=== PATIENT | female | born 1960 | race Caucasian/White ===

== ENCOUNTER 2024-03-13 10:30 | Outpatient (CLI) | payer MEDICARE, SELFPAY ==
--- NOTE | 2024-03-13 10:35 | MM_ITS ---
PROCEDURE INFORMATION: Exam: MG Bilateral Screening 3D Mammography Exam date and time: 03/13/2024 10:27 AM Age: 64 years old Clinical indication: Screening examination. Her sister had breast cancer. TECHNIQUE: Imaging protocol: Bilateral Screening tomosynthesis and 2D mammography including computer-aided detection (CAD) when performed. COMPARISON: 1. MG MM MAMMO DIGITAL CESAR SCREEN BILAT 03/02/2023 12:16 PM 2. MG DMSB DIGITAL MAMM-SCREEN BILATERAL 05/11/2012 9:30 AM 3. MG DMSB DIGITAL MAMM-SCREEN BILATERAL 05/07/2011 8:11 AM 4. MG DMDXUAVL DIG MAMM-DX UNI ADD VIEWS-LT 05/06/2010 1:28 PM FINDINGS: MAMMOGRAPHY: Breast composition: There are scattered areas of fibroglandular density. Mass: None. Architectural distortion: None. Calcifications: No suspicious calcifications. Asymmetric density: None. Skin thickening: None. Axillary adenopathy: None. IMPRESSION: No mammographic evidence of malignancy. Annual screening is recommended unless otherwise clinically indicated. ASSESSMENT: BI-RADS Category 1: Negative.
== END 2024-03-13 23:59 | disposition home or self-care (01) ==
PROVIDERS: PCP Family Medicine; Visit Provider Family Medicine
DX: Z12.31 Encounter for screening mammogram for malignant neoplasm of breast (principal)
CPT/HCPCS: 77063; 77067

== ENCOUNTER 2025-03-14 09:53 | Outpatient (CLI) | payer MEDICARE, SELFPAY ==
--- NOTE | 2025-03-14 09:55 | MM_ITS ---
PROCEDURE INFORMATION: Exam: MG Bilateral Screening 3D Mammography Exam date and time: 03/14/2025 10:00 AM Age: 65 years old Clinical indication: Screening examination TECHNIQUE: Imaging protocol: Bilateral Screening tomosynthesis and 2D mammography including computer-aided detection (CAD) when performed. COMPARISON: 1. MG MM DIG SCREENING MAMM BI W/CAD 03/13/2024 10:27 AM 2. MG MM MAMMO DIGITAL CESAR SCREEN BILAT 03/02/2023 12:16 PM FINDINGS: MAMMOGRAPHY: Breast composition: There are scattered areas of fibroglandular density. Mass: None. Architectural distortion: None. Calcifications: No suspicious calcifications. Asymmetric density: None. Skin thickening: None. Axillary adenopathy: None. IMPRESSION: No mammographic evidence of malignancy. Annual screening is recommended unless otherwise clinically indicated. ASSESSMENT: BI-RADS Category 1: Negative.
--- OUTSIDE RECORDS SUMMARY | 2025-03-14 10:04 | XMS_ITS | Clinical Summary ---
Author Organization [facility] are Address [address] [place] [address] Phone Care Team Providers Care Garment Finisher Name Role Phone Unavailable Unavailable Conditions or Problems No information available. Medications No information available. Medications Administered No information available. Allergies, Adverse Reactions, Alerts No information available. Results No information available. Plan of Care No information available. Procedures No information available. Vital Signs No information available. Immunizations No information available. Advance Directives No information available.
--- OUTSIDE RECORDS SUMMARY | 2025-03-14 10:04 | XMS_ITS | Encounter Summary ---
Author Organization Healthcare Address [address] [place] [address] Care Team Providers Care Court Bailiff Name Role Phone Emelia Tellez MD Primary Care Provider [phone] Encounter Details Date Type Department Care Team (Late st Contact Info) Description 12/29/2018 Abstract DSB [facility] [address] [place] [address] Dental, Provider, [place] [address] Social History Tobacco Use Types Packs/Day Years Used Date Smoking Tobacco: Never Assessed Comments Unknown Sex and Gender Information Value Date Recorded Sex Assigned at Not on file Legal Sex Female 8:54 PM EDT Gender Identity Not on file Sexual Orientation Not on file documented as of this encounter Plan of Treatment Not on file documented as of this encounter Visit Diagnoses Not on filedocumented in this encounter Care Teams Court Bailiff Relationship Specialty Start Date End Date Emelia Tellez MD [address] [place] [id number] PCP - General 09/20/20 documented as of this encounter
--- OUTSIDE RECORDS SUMMARY | 2025-03-14 10:04 | XMS_ITS | Clinical Summary ---
Author Organization [facility] Address [address] [id number] Care Team Providers Care Vertical Contour Band Saw Operator Name Role Phone Emelia Tellez MD Primary Care Provider [phone] Allergies Active Allergy Reactions Criticality Noted Date Comments Codeine Itching Medium 07/08/2021 Medications cyanocobalamin (cyanocobalamin) 100 MCG tablet Take 100 mcg by mouth 1 (one) time each day. Active cholecalciferol (cholecalciferol ) 10 MCG (400 UNIT) tablet Take 400 Units by mouth 1 (one) time each day. Active Active Problems No known active problems Social History Tobacco Use Types Packs/Day Years Used Date Smoking Tobacco: Former Cigarettes Q uit: 1979 Smokeless Tobacco: Never Alcohol Use Standard Drinks/Week Comments Never 0 (1 standard drink = 0.6 oz pur e alcohol) Comments Unknown Sex and Gender Information Value Date Recorded Sex Assigned at Not on file Legal Sex Female 8:54 PM EDT Gender Identity Not on file Sexual Orientation Not on file Last Filed Vital Signs Vital Sign Reading Time Taken Comments Blood Pressure 132/98 07/15/2021 11:11 AM EST Pulse 88 07/15/2021 11:11 AM EST Temperature - - Respiratory Rate - - Oxygen Saturation - - Inhaled Oxygen Concentration - - Weight - - Height - - Body Mass Index - - Plan of Treatment Health Maintenance Due Date Last Done Comments Dental Oral Exam 1959 [facility]-Bone Density Scan 1959 [facility]-Depression Screening 1959 [facility]-Infant/Child/Adol SDOH Screenings 1959 [facility]- SDOH Screenings 1977 [facility]-Adult SDOH Screenings 1977 CT Colonography 01/13/2004 Colonoscopy 01/13/2004 FIT-DNA 01/13/2004 FIT 01/13/2004 FOBT 01/13/2004 Sigmoidoscopy 01/13/2004 [facility]-Colorectal Cancer Screening 01/13/2004 [facility]-Pneumococcal Vaccine: 50 + Years (1 of 1 - PCV) 2009 [facility]-Zoster Vaccines (1 of 2) 2009 Dental X-Ray: Bitewings 12/24/2017 12/23/2016 Dental Prophylaxis 04/01/2018 09/28/2017 Dental X-Ray: Full Mouth 12/25/2019 12/23/2016 [id number] Vaccine (1 - 2023-25 season) 2025 [facility]-Influenza Vaccine (#1) 2025 [facility]-DTaP,Tdap,and Td Vaccine s (4 - Td or Tdap) 10/12/2027 10/11/2017, 05/23/2009, 09/11/2005 [facility]-RSV Vaccine: 60+ Years o r (1 - 1-dose 75+ series) 2034 HPV Vaccines Aged Out No longer eligi ble based on patient's age to complete this topic [facility]-HIB Vaccines Aged Out No longer e ligible based on patient's age to complete this topic [facility]-Hepatitis A Vaccines Aged Out No longer eligible based on patient's age to complete this topic [facility]-IPV Vaccines Aged Out No longer e ligible based on patient's age to complete this topic [facility]-Rotavirus Vaccines Aged Out No lo nger eligible based on patient's age to complete this topic Procedures Procedure Name Priority Date/Time Associated Diagnosis Comments PROPHYLAXIS - ADULT Routine 09/28/2017 1 2:00 AM EDT INTRAORAL - COMPLETE SERIES OF RADIOGRAPHIC IMAGES Routine 12/23/2016 12:00 AM EDT from Last 3 Months or Most Recently Relevant to Health Maintenance Insurance [employer] MEDICAID [facility] MEDICAID DENTAL Care Teams Vertical Contour Band Saw Operator Relationship Specialty Start Date End Date Emelia Tellez MD [address] [place] [id number] PCP - General 09/20/20
--- OUTSIDE RECORDS SUMMARY | 2025-03-14 10:05 | XMS_ITS | Data Portability ---
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 deficiency 18407461 Active 2021 Emelia Tellez MD [address], [place], [address] , [place] - [facility] 2 11:18:39 Disorder of eye 488881459 Active 2022 Cassie Barraza APRN [address], [place], [address] , [place] - [facility] 3 10:23:46 Obesity 472693676 Active 2023 Emelia Tellez MD [address], [place], [address] , [place] - [facility] 5 12:42:25 Obese class II 8372456860737 05 Active 2024 Cassie Barraza APRN [address], [place], [address] , [place] - [facility] 5 09:15:44 Problem Notes None recorded. Procedures Surgical History Date Name Laterality Status Provider Name and Address Organization Details Recorded Time 03/12/20 25 Most Recent Bone Density completed Emelia Tellez MD [address], [place], [address], [place] - [facility] 03/12/2025 17:37:11 03/13/20 24 Date of Last Mammogram completed Emelia Tellez MD [address], [place], [address], [place] [facility] 03/15/2024 17:34:21 03/02/20 24 Date of Last Pap Smear completed Cassie Barraza APRN [address], [place], [address], [place] [facility] 03/07/2024 10:11:11 01/15/20 23 Advance Care Planning completed Alisa Quach [place] - [facility] 01/14/2023 10:27:40 01/15/20 23 Functional Status Assessed completed Alisa Quach [place] [facility] 01/14/2023 10:27:40 03/16/20 22 Date of Last Colonoscopy completed Cassie Barraza APRN [address], [place], [address], [place] [facility] 02/22/2023 09:47:49 03/16/20 22 Colonoscopy completed Susie Fuller [place] - [facility] 02/22/2023 09:57:01 01/14/20 22 Advance Care Planning completed Alisa Quach [place] - [facility] 01/13/2022 10:57:20 01/14/20 22 Functional Status Assessed completed Alisa Quach [place] - [facility] 01/13/2022 10:57:20 05/29/19 20 Medication Reconcilliation completed Alisa Quach [place] - [facility] 05/29/2019 10:45:48 03/24/20 19 Medication Reconcilliation completed Alisa Quach [place] [facility] 03/24/2019 09:49:21 12/10/19 17 Egd esophagogastrc fndoplsty completed Susie Alina [place] - [facility] 01/30/2020 08:57:59 12/03/18 89 Tubal Ligation completed Joelle Avalosin [place] [facility] 12/01/2024 09:06:00 Imaging Results None recorded. Procedure Notes None recorded. Medical Equipment None Reported. Allergies Allergen ID Allergen Name Allergen Category Reaction Reaction Severity Criticality Documentation Date Start Date Code Code System Note Provider Name and Address Organization Details Recorded Time 15530 Codeine Antitussi ve Cough medicatio n Not available Not available Not available 02/14/20162009 Not Available [facility] 6 10:07:32 77230 codeine phosphate medicatio n Not available Not available Not available 02/14/20162009 2672 RxNorm Not Available [facility] 6 10:07:32 29661 codeine sulfate medicatio n itching Not available Not available 02/14/20162009 00529 RxNorm Not Available [facility] 6 10:07:32 Medications Name Sig Start Date Stop Date Status Note LastModified by Organization Details LastModified Time drug unknown 04/12 completed Not Available Not Available Not Available cyclobenz aprine 10 mg tablet Take 1 tablet every day by oral route as needed for 7 days. 06/29 completed Not Available Not Available Not Available amoxicill in 500 mg capsule 05/29 completed Not Available Not Available Not Available azithromy becky 250 mg tablet 06/29 completed Not Available Not Available Not Available ibuprofen 800 mg tablet 04/29 completed Not Available Not Available Not Available fluconazo le 150 mg tablet take one tablet PO then repeat dose in three days. 09/23 completed Not Available Not Available Not Available hydrocodo ne 5 mg-acetam inophen 325 mg tablet 05/24 completed Not Available Not Available Not Available hydrocort isone 1 % topical ointment APPLY A THIN LAYER TO THE AFFECTED AREA(S) BY TOPICAL ROUTE 2 TIMES PER DAY PRN 01/13 completed Not Available Not Available Not Available fluconazo le 200 mg tablet Take one tablet by mouth once a week for 4 weeks 12/25 completed Not Available Not Available Not Available Elidel 1 % topical cream APPLY A THIN LAYER TO THE AFFECTED AREA(S) BY TOPICAL ROUTE TWO (2) TIMES PER DAY NEEDED ; RUB IN GENTLY AND COMPLETE LY 01/13 completed Not Available Not Available Not Available prednison e 20 mg tablet take 1 tablet (20 mg) by oral route 2 times per day for 5 days 07/30 completed predniso ne 20 mg oral tablet;P rescribe Status: Prescrib ed on: 03/27/20 14 4:29PM;D iscontin ued Status: Disconti nued on: 07/31/19 15 8:56AM;U ser: marie ;Est. Completi on: 04/01/20 14;Pharm acyVerif ied: 03/27/20 14 4:29PM Not Available Not Available Not Available bacitraci n 500 unit/gram topical ointment Apply to affected ear TID for 4 weeks, repeat PRN 03/02 completed Not Available Not Available Not Available penicilli n V potassium 500 mg tablet Take 1 tablet twice a day by oral route for 10 days. 12/01 completed Not Available Not Available Not Available oxiconazo le 1 % topical cream 01/29 completed prn Not Available Not Available Not Available triamcino lone acetonide 0.1 % topical cream APPLY A THIN LAYER TO THE AFFECTED AREA(S) BY TOPICAL ROUTE 2 TIMES PER DAY PRN ITCH 02/22 completed Not Available Not Available Not Available pantopraz ole 20 mg tablet,de layed release Take 1 tablet every day by oral route as needed for 30 days. 08/10 completed Not Available Not Available Not Available ofloxacin 0.3 % ear drops INSTILL 10 DROPS INTO AFFECTED EAR(S) BY OTIC ROUTE ONCE DAILY x 10 days 12/27 completed Not Available Not Available Not Available triamcino lone acetonide 0.025 % topical cream APPLY A THIN LAYER TO THE AFFECTED AREA(S) BY TOPICAL ROUTE 2 TIMES PER DAY 02/14 completed Not Available Not Available Not Available meclizine 25 mg tablet take 1 tablet (25 mg) by oral route 4 times per day as needed 07/24 completed meclizin e 25 mg oral tablet;P rescribe Status: Prescrib ed on: 05/13/19 16 9:41AM;D iscontin ued Status: Disconti nued on: 07/25/19 16 10:51AM; User: marie ;Est. Completi on: 07/12/19 16;Indic ation: Vertigo - ([phone] 00);Phar macyVeri fied: 05/13/19 16 9:41AM Not Available Not Available Not Available hydrocort isone 1 % topical cream APPLY A THIN LAYER TO THE AFFECTED AREA(S) BY TOPICAL ROUTE 2 TIMES PER DAY PRN 12/20 completed Not Available Not Available Not Available cyanocoba kelly (vit B-12) 1,000 mcg/mL injection solution Inject 1 mL every month by intramus cular route. 10/11 completed Pt want to try oral Not Available Not Available Not Available nystatin 100,000 unit/gram topical cream APPLY TO THE AFFECTED AREA(S) BY TOPICAL ROUTE 2 -3 TIMES PER DAY 12/27 completed Not Available Not Available Not Available ranitidin e 150 mg tablet Take 1 tablet twice a day by oral route. 05/24 completed not needing it Not Available Not Available Not Available polymyxin B sulfate 10,000 unit-trim ethoprim 1 mg/mL eye drops INSTILL 1 DROP INTO LEFT EYE BY OPHTHALM IC ROUTE EVERY 6 HOURS for 4-5 days 01/29 completed Not Available Not Available Not Available hydrocort isone-waldemar e vera 1 % topical cream 01/29 completed Not Available Not Available Not Available amoxicill in 250 mg capsule Take 1 capsule 3 times a day by oral route as directed for 10 days. 05/24 completed Not Available Not Available Not Available Replens vaginal gel Insert 6.7 g twice a week by vaginal route at bedtime for 3 days. 2024 active Not Available Not Available Not Avai lable cyanocoba kelly (vit B-12) 1,000 mcg sublingua l tablet Place 1 tablet every day by sublingu al route. 2024 active Not Available Not Available Not Avai lable hydrocort isone butyrate 0.1 % topical cream 01/29 completed Not Available Not Available Not Available clobetaso l 0.05 % topical ointment APPLY A THIN LAYER TO THE AFFECTED AREA(S) BY TOPICAL ROUTE 2 -3 TIMES PER DAY PRN for itching active Not Available Not Available No t Available polyethyl david glycol 3350 17 gram/dose oral powder 02/22 completed Not Available Not Available Not Available ketoconaz ole 2 % topical cream APPLY TO THE AFFECTED AREA(S) BY TOPICAL ROUTE twice DAILY 12/27 completed Not Available Not Available Not Available naproxen 500 mg tablet Take 1 tablet twice a day by oral route with meals. 01/29 completed Not Available Not Available Not Available amoxicill in 875 mg-potass ium clavulana te 125 mg tablet Take 1 tablet every 12 hours by oral route. 05/18 completed Not Available Not Available Not Available amoxicill in 500 mg-potass ium clavulana te 125 mg tablet 05/29 completed Not Available Not Available Not Available neomycin- polymyxin -hydrocor t 3.5 mg-10,000 unit/mL-1 % ear drops,deidra p INSTILL 4 DROPS INTO AFFECTED EAR(S) BY OTIC ROUTE 3 TIMES PER DAY FOR ABOUT 1 WEEK 12/18 completed Not Available Not Available Not Available Premarin 0.625 mg/gram vaginal cream Insert 0.5 g twice a week by vaginal route. 02/11 completed Not Available Not Available Not Available chlorhexi dine gluconate 0.12 % mouthwash 05/29 completed Not Available Not Available Not Available Vitamin D3 1 tabs po qday - 2000 units 2014 active OTC----- ---Vitam in D3 oral;Rec orded Status: Recorded on: 07/31/19 15 8:56AM;U ser: [email or web address] Not Available Not Available Not Available diclofena c 1 % topical gel APPLY 2 GRAMS TO THE AFFECTED AREA(S) BY TOPICAL ROUTE 4 TIMES PER DAY PRN 12/25 completed Not Available Not Available Not Available Pain and Fever 500 mg tablet 04/29 completed Not Available Not Available Not Available calcium 167 mg-magnes ium 65 mg-chondr 50 mg-brom-h erbal-min eral tablet Take 1 tablet every day by oral route as directed . 02/11 completed OTC Not Available Not Available Not Available Vitals Date Recorded Body height Body mass index (BMI) Body weight Heart rate Body temperature Oxygen saturation Oxygen saturation in Arterial blood by Pulse oximetry Pain severity - 0-10 verbal numeric rating [Score] - Reported Systolic And Diastolic Provider Name and Address Organization Details Last Updated DateTime 5 160.02 cm 36.2 kg/m2 50248.2 4 g 80 /min 97.7 [degF] 96 % 96 % 0 122/80.98 mm[Hg] Yoselin Mes[place] - [facility] 5 11:01:16 Date Recorded Body height Body mass index (BMI) Body weight Body temperature Heart rate Oxygen saturation Oxygen saturation in Arterial blood by Pulse oximetry Systolic And Diastolic Provider Name and Address Organization Details Last Updated DateTime 5 160.02 cm 36.3 kg/m2 78755.4 4 g 98 [degF] 76 /min 94 % 94 % 138/79 mm[Hg] Joelle Beck [place] - [facility] 5 09:04:46 Date Recorded Body height Body mass index (BMI) Body weight Respiratory rate Oxygen saturation Oxygen saturation in Arterial blood by Pulse oximetry Heart rate Systolic And Diastolic Provider Name and Address Organization Details Last Updated DateTime 5 160.02 cm 36.5 kg/m2 78530.0 3 g 18 /min 95 % 95 % 73 /min 125/83 mm[Hg] Joelle Beck [place] - [facility] 5 10:25:50 Date Recorded Body height Body mass index (BMI) Body weight Systolic And Diastolic Provider Name and Address Organization Details Last Updated DateTime 03/02/2024 160.02 cm 36.1 kg/m2 06478.84 g 112/70 mm[Hg] Susie Fuller [place] - [facility] 03/02/2024 10:09:53 Date Recorded Body height Body mass index (BMI) Body weight Systolic And Diastolic Provider Name and Address Organization Details Last Updated DateTime 03/12/2025 160.02 cm 36.8 kg/m2 30396.21 g 122/82 mm[Hg] Susie Fuller [place] - [facility] 03/12/2025 09:09:10 Social History Question Answer Notes LastModified by Organizat ion Details LastModified Time Tobacco Smoking Status Former Smoker Ana alba [place] - [facility] 04/29/2016 13:59:08 Able To Swim? No [email or web address] Information not available 02/22/2023 Do You Have An Advance Directive? No Information not available 04/29/2016 Do You Wear A Helmet When Biking? No [email or web address] Information not available 02/22/2023 Are You Blind Or Do You Have Difficulty Seeing? No [email or web address] Information not available 02/22/2023 Is Blood Transfusion Acceptable In An Emergency? Yes [email or web address] Information not available 04/12/2018 What Is Your Level Of Caffeine Consumption? Moderate [email or web address] Information not available 03/12/2025 How Much Tobacco Do You Chew? None Information not available 04/29/2016 In The 14 Days Before Symptom Onset, Have You Had Close Contact With A Laboratory-confir med COVID-19 While That Case Was Ill? No [email or web address] Information not available 02/22/2023 In The 14 Days Before Symptom Onset, Have You Had Close Contact With A Person Who Is Under Investigation For COVID-19 While That Person Was Ill? No [email or web address] Information not available 02/22/2023 Have You Been To An Area Known To Be High Risk For COVID-19? No [email or web address] Information not available 02/22/2023 Are You Deaf Or Do You Have Serious Difficulty Hearing? No Information not available 04/29/2016 What Type Of Diet Are You Following? REGULAR Information not available 04/29/2016 Which Illicit Or Recreational Drugs Have You Used? None [email or web address] Information not available 04/12/2018 Have You Processed Blood Or Body Fluids From An Ebola Virus Disease Patient Without Appropriate PPE? No [email or web address] Information not available 02/22/2023 Do You Reside In Or Have You Traveled To An Area Where Ebola Virus Transmission Is Active? No [email or web address] Information not available 02/22/2023 What Is The Highest Grade Or Level Of School You Have Completed Or The Highest Degree You Have Received? [id number] Information not available 12/01/2024 How Many Days Of Moderate To Strenuous Exercise, Like A Brisk Walk, Did You Do In The Last 7 Days? 1 [email or web address] Information not available 02/22/2023 On Those Days That You Engage In Moderate To Strenuous Exercise, How Many Minutes, On Average, Do You Exercise? 1 [email or web address] Information not available 02/22/2023 Swimming/diving No [email or web address] Informati on not available 02/22/2023 Have There Been Any Changes To Your Family Or Social Situation? No [email or web address] Information no t available 02/22/2023 How Hard Is It For You To Pay For The Very Basics Like Food, Housing, Medical Care, And Heating? Not Very Hard [email or web address] Information not available 02/22/2023 What Is The Fluoride Status Of Your Home? Fluoridated [email or web address] Information not available 02/22/2023 When Did You Quit Smoking? 16+yearssincelast cigarette [email or web address] Information not available 02/11/2021 Hard Of Hearing Or Deaf In One Or Both Ears? No [email or web address] Information not available 02/22/2023 Have You Recently Or Are You Planning To Travel To An Area With Zika Virus? No [email or web address] Information not available 02/22/2023 How Many Years Have You Used Illicit Or Recreational Drugs? 0 Information not available 12/01/2024 Legally Blind In One Or Both Eyes? No [email or web address] Information no t available 02/22/2023 Live Alone Or With Others? With Others [email or web address] Information not available 02/22/2023 Do You Have A Medical Power Of Penology Professor? No [email or web address] Information not available 02/22/2023 What Was The Date Of Your Most Recent Tobacco Screening? 03/12/2025 Information not available 03/12/2025 How Many Children Do You Have? 5 Information not available 04/29/2016 What Is Your Current Pack Years? 10-19packyears [email or web address] Information not available 02/22/2023 Performs Monthly Self-breast Exam? Yes [email or web address] Information no t available 02/22/2023 Do You Use Protection During Sex? Always [email or web address] Information not available 02/22/2023 Do You Use Protection Against STDs? No [email or web address] Information not available 02/12/2022 What Is Your Relationship Status? Information not available 04/29/2016 Do You Use Your Seat Belt Or Car Seat Routinely? Yes Information not available 12/01/2024 Seat Belts Used Routinely Yes [email or web address] Information not available 02/22/2023 Are You Sexually Active? Yes Information not available 04/29/2016 Smoke Alarm In Home Yes [email or web address] Information not available 02/22/2023 Do You Have Smoke And Carbon Monoxide Detectors In Your Home? Yes [email or web address] Information not available 02/11/2021 At What Age Did You Start Smoking Tobacco? 15 Information not available 04/29/2016 Are You Passively Exposed To Smoke? No Information no t available 04/29/2016 How Much Tobacco Do You Smoke? No [email or web address] Information not available 08/24/2016 General Stress Level Low [email or web address] Information not available 02/22/2023 Do You Use Sunscreen Routinely? Yes Information not available 04/29/2016 Has Tobacco Cessation Counseling Been Provided? No [email or web address] Information not available 03/12/2025 On What Date Was Tobacco Cessation Counseling Provided? 03/12/2025 [email or web address] Information not available 03/12/2025 How Many Years Have You Smoked Tobacco? 10 Information not available 04/29/2016 Do You Have Difficulty Walking Or Climbing Stairs? No [email or web address] Information not available 02/22/2023 What Contraceptive Method Was Reported At Start Of This Visit? Female Sterilization [email or web address] Information not available 02/22/2023 Do You Want To Talk About Contraception Or Prevention During Your Visit Today? No - I Do Not Want To Talk About Contraception Today Because I Am Here For Something Else [email or web address] Information not available 02/22/2023 Do You Have Any Future Plans To Get ? No, I Don't Want To Become [email or web address] Information not available 02/22/2023 Sex: Female Functional Status Question Answer Note LastModified by Organizat ion Details LastModified Time Do you or have you ever used smokeless tobacco? Never used smokeless tobacco [email or web address] Information not available 01/30/2020 Are you currently employed? No Information not available 12/01/2024 Do you have transportation difficulties? No [email or web address] Information not available 02/22/2023 Urinary incontinence assessment performed? Yes [email or web address] Information not available 02/22/2023 Are you able to care for yourself independently? Yes Information not available 04/29/2016 Do you have difficulty dressing, bathing, grooming, or toileting? No [email or web address] Information not available 02/22/2023 Do you or have you ever used e-cigarettes or vape? Never used electronic cigarettes [email or web address] Information not available 05/29/2019 What is your exercise level? Moderate Information not available 12/01/2024 Do you use any illicit or recreational drugs? No Information not available 02/11/2021 Do you or have you ever used any other forms of tobacco or nicotine? No [email or web address] Information not available 02/22/2023 What is your level of alcohol consumption? None Information not available 04/29/2016 What is your status? Not [email or web address] Information no t available 02/22/2023 Are you able to walk independently without assistance or assistive devices? YESWOREST [email or web address] Information not available 02/22/2023 Do you have difficulty doing errands alone? No [email or web address] Information not available 02/22/2023 What is your occupation? NONE [email or web address] Information not available 02/11/2021 Mental Status Question Answer Note LastModified by Organizat ion Details LastModified Time Do you feel stressed (tense, restless, nervous, or anxious, or unable to sleep at night)? [id number] [email or web address] Information not available 02/11/2021 Do you have difficulty concentrating, remembering or making decisions? No [email or web address] Information no t available 02/22/2023 Family History Relationship Description Onset Age of this Age Resolved Age Notes LastModified by Organization Details LastModified Time Father Atrial fibrillation [email or web address] Not available 07/2024 08:54:11 Father Hypertensive disorder [place] [id number] Not available 06/2015 12:49:58 Sister Malignant neoplasm of breast [place] [id number] Not available 06/2015 12:48:56 Paternal Grandfather Diabetes mellitus [place] [address] Not available 06/2015 12:49:20 Maternal Grandmother Heart disease [place] [address] Not available 06/2015 12:49:39 Medical History Condition Response Pancreatitis N Coronary Artery Disease N Other N Gout N Atrial Fibrillation N congenital heart disease N Blood Diseases N Kidney Stones N Hyperthyroidism N Blood Transfusion N Rheumatoid arthritis N Erectile Dysfunction N amputation N Colonoscopy N Skin Lesions N COPD N Depression N Pneumonia N Incontinence N Murmur N Edema N Alzheimer's Disease N Migraine Headaches N Tobacco Abuse N Anxiety Disorder N Hemorrhoids N Muscle, Joint, or Bone Problems N Obesity Y Vision or Eye Problems N Arthritis N Restless Leg Syndrome N Polyps N Infertility N Mental Disorder N Carpal Tunnel N Acid Reflux (GERD) Y Cancer N Varicosities N Stroke N Tendonitis N Crohn's Disease N Hypercholesterolemia N Skin Cancer N Headaches N Fibromyalgia N Anal Fissure N Irritable Bowel Syndrome N Kidney Disease N Heart Problems N Ear or Hearing Problems N Hospitalizations Y Gallstones N Kidney or Bladder Problems N Goiter N Acne N Skin Problems N Eating Disorder N Dsouza's Esophagus N Hypertriglyceridemia N MRSA exposure N Constipation N Embolism N Vitamin B12 Deficiency Y Deviated Septum N Tuberculosis N AIDS/HIV N Myocardial Infarction N Asthma N Mitral Valve Disorders N Vertigo N Hepatitis N Thyroid Cancer N Neuropathy N Pulmonary Embolism N History of DVT N Herniated Disc N Chronic Ear Infections N Chicken Pox Y Autism Spectrum Disorder (ASD) N Von Willebrands Disease N Thrombophilias N Breast Cancer N Hernia N Plantar Fasciitis N Hospital Admission Other Than N Lung Disease N Hypothyroidism N Defects or Inherited Disease N Developmental or Behavioral Disorders N Breast Problem N Difficulty Swallowing N Ovarian Cyst N Anesthesia Complications N Testosterone Deficiency N Meniere's disease N Head Injury/Concussion N Interstitial Cystitis N Congenital Anomalies N Hypoglycemia N Blood clot N Vitamin D Deficiency Y Cellulitis N Endometriosis N Fracture N Bladder or Kidney Problems N Liver Disease N Panic Disorder N Schizophrenia N Concussion N Spina Bifida N Allergies/Hayfever N Osteoarthritis N Parkinson's Disease N Disc Protrusion N STI N Esophagitis N Angina N Thyroid Problems N GI Problems N ADD/ADHD N Anemia N Multiple Sclerosis N Abnormal PAP Y Lumbago N Mental Illness N Psychiatric Illness N Diabetes N Ovarian Cancer N Bedwetting N Degenerative Disc Disease N Seizures/Epilepsy N Congestive Heart Failure (CHF) N Hyperlipidemia N Syncope N Insomnia N Eczema N Abuse/Domestic Violence N Attention Deficient Disorder N Diverticulitis N Dementia N Ulcerative colitis N Cerebrovascular Disease N Depression N Guillain-[place] N Sleep Apnea N Aneurysm N Bronchitis N Heart Disease N Suicidal Ideation N Pre-Eclampsia N Hypertension N Osteoporosis N Gynecological History Statement/Question Response Abnormal Pap Y Date of Last Mammogram 03/13/2024 Flow [place] Date of LMP 05/10/2018 Post Menopausal Bleeding Y STIs/STDs N Colposcopy HPV Vaccine N Duration of Flow (days) 1 Current Control Method Tubal Ligat ion Age at Menarche 12 Age at First Child 16 Last Annual Exam/Provider 03/02/24 w/ [place] If Post Menopausal, Age at Menopause 49 Date of Last Colonoscopy 03/16/2022 Most Recent Bone Density 03/12/2025 Sexually Active? Y Menses Monthly N Date of Last Pap Smear 03/02/2024 Sexual Problems? N LMP Hormone Replacement Therapy N Obstetrics History GPAL:G 5 P 5 0 0 5 Type Value Full Term 5 Living 5 Total 5 Immunizations Vaccine Type Date Status Note Provider Name and Address Organization Details Recorded Time Tdap 09/12/19 06 completed Not Available [facility] 03/12/2025 08:54:39 Tdap 05/23/19 10 completed Not Available [facility] 03/12/2025 08:54:39 Tdap 10/12/19 18 completed Not Available [facility] 05/27/2019 03:55:00 Influenza, split virus, quadrivalent, preservative 04/12/20 18 cancelled patient objection Not Available [facility] 05/27/2019 03:55:24 Past Encounters Encounter ID Performer Location Encounter Start Date Encounter Closed Date Diagnosis/Indication Diagnosis SNOMED-CT Code Diagnosis ICD10 Code Diagnosis IMO Codes Diagnosis Note [id number] Emelia Tellez MD [address] [place] [address] 03/16/2016 09:18:08 03/16/2016 10:17:31 Disorder of vitamin B12 603877490 E53.8 Vitamin B1 2 deficiency (non anemic) 82310993 E53.8 [id number] Emelia Tellez MD [address] [place] [address] 04/16/2016 09:04:43 04/16/2016 09:38:50 Cobalamin deficiency 421152461 E53.8 Upper resp iratory infection 53380600 J06.9 [id number] Brett Montiel MD [address] [place] [address] 04/29/2016 13:50:58 04/29/2016 14:30:19 Acute bronchitis 88265333 J20.9 Acute maxi llary sinusitis 98241753 J01.00 [id number] Emelia Tellez MD [address] [place] [address] 05/18/2016 12:54:26 05/18/2016 13:05:48 Disorder of vitamin B12 797235482 E53.8 [id number] Emelia Tellez MD [address] [place] [address] 06/29/2016 11:27:43 06/29/2016 11:50:30 Disorder of vitamin B12 896879268 E53.8 Cobalamin deficiency 190 664649 E53.8 [id number] Eemlia Tellez MD [address] [place] [address] 07/27/2016 09:07:23 07/27/2016 09:28:05 Disorder of vitamin B12 320432377 E53.8 [id number] Emelia Tellez MD [address] [place] [address] 08/24/2016 09:14:43 08/24/2016 10:26:28 Disorder of vitamin B12 970900280 E53.8 Vitiligo 99145979 L80 Iron defic iency anemia 48072418 D50.9 Body mass index 30+ - obesity 444559193 Z68.39 Screening mammography 24 541100 Z12.31 Hyperlipidemia 33618962 E78.5 [id number] Emelia Tellez MD [address] [place] [address] 09/22/2016 15:43:20 09/22/2016 15:59:20 Cobalamin deficiency 462458850 E53.8 Itching of ear 663499894 L29.8 [id number] Emelia Tellez MD [address] [place] [address] 10/20/2016 11:24:53 10/20/2016 11:46:41 Cobalamin deficiency 677572672 E53.8 [id number] Emelia Tellez MD [address] [place] [address] 11/09/2016 11:14:08 11/09/2016 11:55:15 Cobalamin deficiency 374081677 E53.8 Left upper quadrant pain 419230492 R10.12 [id number] Emelia Tellez MD [address] [place] [address] 12/07/2016 11:13:42 12/07/2016 11:40:09 Cobalamin deficiency 651101786 E53.8 [id number] Emelia Tellez MD [address] [place] [address] 01/04/2017 11:10:54 01/04/2017 11:26:10 Cobalamin deficiency 330397783 E53.8 [id number] Emelia Tellez MD [address] [place] [address] 02/01/2017 10:48:33 02/01/2017 11:03:39 Cobalamin deficiency 697307361 E53.8 Vaccine de clined by patient 9498699994 02 Z28.20 [id number] Emelia Tellez MD [address] [place] [address] 03/01/2017 11:12:50 03/01/2017 11:43:38 Cobalamin deficiency 222656674 E53.8 Difficulty swallowing 28 9509273 R13.10 [id number] Emelia Tellez MD [address] [place] [address] 03/26/2017 11:18:43 03/26/2017 11:53:49 Cobalamin deficiency 395040098 E53.8 Burning ep igastric pain 01903351 R10.13 [id number] Emelia Tellez MD [address] [place] [address] 05/31/2017 12:42:20 05/31/2017 13:04:11 Cobalamin deficiency 243502565 E53.8 [id number] Emelia Tellez MD [address] [place] [address] 07/01/2017 12:36:29 07/01/2017 12:55:47 Cobalamin deficiency 622723212 E53.8 [id number] Emelia Tellez MD [address] [place] [address] 10/11/2017 08:55:55 10/11/2017 11:07:21 Cobalamin deficiency 966558335 E53.8 Iron defic iency anemia 26679450 D50.9 General ex amination of patient 890352125 Z00.00 Screening for cardiovascular system disease 584424392 Z13.6 Endocrine/ metabolic screening 454587731 Z13.228 Body mass index 30+ - obesity 157760323 Z68.33 Screening for malignant neoplasm of colon 315371001 Z12.11 Administra tion of diphtheria, pertussis, and tetanus vaccine 687128880 Z23 Gastroesophagitis 713752 00 K29.70 [id number] Cassie Barraza APRN [place] [employer] [address] [place] [address] [place] [address] 04/12/2018 08:52:38 04/12/2018 09:41:23 Routine gynecologic examination done 3866909372 9101 Z01.419 Depression screening 171 504928 Z13.89 PHQ-9 completed today. Diet education 82806156 Z71.3 Counseling 951994016 Z71 .82 Exercise counsellin g. Patient encouraged to exercise 30 minutes 5 days a week. Examinatio n of blood pressure 829504457 Z01.30 Vaccine de clined by patient 1318391348 02 Z28.21 Pt declined flu vaccine today. Screening for malignant neoplasm of cervix 605495570 Z12.4 Patient advised that I will follow up with results. Vitiligo 27298648 L80 Screening mammography 24 352190 Z12.31 Screening for malignant neoplasm of colon 786604004 Z12.11 due in 2019 Adult heal th examination 794248935 Z00.00 Body mass index 30+ - obesity 461330217 Z68.33 [id number] Emelia Tellez MD [address] [place] [address] 05/24/2018 09:44:24 05/24/2018 10:37:04 Cobalamin deficiency 918705992 E53.8 Vitamin D deficiency 347 98124 E55.9 Cheilosis 45849481 K13.0 [id number] Emelia Tellez MD [address] [place] [address] 11/15/2018 09:02:37 11/15/2018 09:37:39 General examination of patient 459562908 Z00.00 Screening for cardiovascular system disease 342242993 Z13.6 Endocrine/ metabolic screening 428262971 Z13.228 Exercises education, guidance, and counseling 364223490 Z71.82 Dietary ma nagement surveillance 835613132 Z71.3 Cobalamin deficiency 190 917028 E53.8 Iron defic iency anemia 37905658 D50.9 Body mass index 30+ - obesity 118036852 Z68.32 Gastroesop hageal reflux disease without esophagitis 986883422 K21.9 Screening for malignant neoplasm of colon 303973479 Z12.11 Vitamin D deficiency 347 82786 E55.9 Active or passive immunization 762389400 Z23 offered shingrix - refused [id number] Emelia Tellez MD [place] [address] [place] [address] 03/24/2019 09:32:24 03/24/2019 10:37:44 Thoracic back pain 894115930 M54.6 Lumbar radiculopathy 128 444031 M54.16 [id number] Emelia Tellez MD [address] [place] [address] 04/27/2019 14:13:05 04/27/2019 16:27:45 Thoracic back pain 885979636 M54.6 Low back pain 562450607 M54.5 [id number] Emelia Tellez MD [address] [place] [address] 05/29/2019 10:41:52 05/29/2019 11:35:07 Thoracic back pain 144717422 M54.6 Low back pain 316331192 M54.5 [id number] Emelia Tellez MD [address] [place] [address] 06/29/2019 10:52:55 06/29/2019 11:48:10 Thoracic back pain 666954864 M54.6 Low back pain 208515277 M54.5 [id number] Emelia Tellez MD [address] [place] [address] 10/23/2019 15:08:21 10/23/2019 16:00:29 Acute otitis externa 65693428 H60.492 [id number] Emelia Tellez MD [address] [place] [address] 12/19/2019 09:37:06 12/19/2019 10:09:40 Conjunctivitis 7529823 H10.9 Eczema 74602817 L30.9 [id number] RUBEN [place] [employer] [address] [place] [address] [place] [address] 01/30/2020 08:47:10 01/30/2020 10:03:27 Routine gynecologic examination done 0330888941 9101 Z01.419 Depression screening 171 955774 Z13.89 PHQ-9 completed today. Diet education 18269252 Z71.3 Counseling 728696900 Z71 .82 Exercise counsellin g. Patient encouraged to exercise 30 minutes 5 days a week. Examinatio n of blood pressure 857619410 Z01.30 Vaccine de clined by patient 4106065389 02 Z28.21 Pt declined flu vaccine today. Screening mammography 24 732738 Z12.31 She is scheduled 02/09/20 for a [facility] Screening for malignant neoplasm of colon 599757541 Z12.11 Negative Cologuard 11/18/18 - repeat in 2021 Screening for malignant neoplasm of ovary 706967755 Z12.73 Screening for malignant neoplasm of cervix 858960261 Z12.4 Z11.3 Patient advised that I will follow up with results. Reduced libido 5724088 R 68.[address] ni on intercourse 985664173 N89.8 Vitiligo 91563420 L80 Body mass index 30+ - obesity 640960688 Z68.34 Discussed with patient her BMI being above the advised range and diagnosis of obesity. Encourage regular physical activity and limited carbohydra te and fat, calorie controlled diet. Advised 6 month F/U with family physician to assess progress towards weight loss. [id number] RUBEN Dave [employer] [address] [place] [address] [place] [address] 02/11/2021 08:54:06 02/11/2021 09:22:45 Routine gynecologic examination done 7765215927 9101 Z01.419 Depression screening 171 937316 Z13.89 PHQ-9 completed today. Diet education 16051627 Z71.3 Counseling 596977665 Z71 .82 Exercise counselcolton becerril. Patient encouraged to exercise 30 minutes 5 days a week. Examinatio n of blood pressure 784113077 Z01.30 Vaccine de clined by patient 4650892144 02 Z28.21 Pt declined flu vaccine today. Screening mammography 24 795158 Z12.31 Screening for malignant neoplasm of colon 625090120 Z12.11 Negative Cologuard 11/18/18 - repeat in 2021 Screening for malignant neoplasm of ovary 894843475 Z12.73 Screening for malignant neoplasm of cervix 905754132 Z12.4 Z11.3 Patient advised that I will follow up with results. Reduced libido 8861787 R 68.82 Vitiligo 97960383 L80 Body mass index 30+ - obesity 721856747 Z68.36 Discussed with patient her BMI being above the advised range and diagnosis of obesity. Encourage regular physical activity and limited carbohydra te and fat, calorie controlled diet. Advised 6 month F/U with family physician to assess progress towards weight loss. Vaginal dr ni on intercourse 083404816 N89.8 [id number] Emelia Tellez MD [address] [place] [address] 02/01/2020 08:48:42 02/01/2020 10:17:55 Cobalamin deficiency 154992965 E53.8 Gastroesop hageal reflux disease without esophagitis 265328252 K21.9 Iron defic iency anemia 51047770 D50.9 Vitiligo 67819768 L80 Vitamin D deficiency 347 60057 E55.9 Hyperlipidemia 68446896 E78.5 Hepatitis C screening 41 8538899 Z11.59 General ex amination of patient 211882749 Z00.00 Endocrine/ metabolic screening 840929119 Z13.228 Exercises education, guidance, and counseling 922837242 Z71.82 Dietary ma nagement surveillance 434372047 Z71.3 Family his tory of osteoporosis 815973422 Z82.62 Vaccine de clined by patient 8575235363 02 Z28.20 flu and shingrix [id number] Emelia Tellez MD [address] [place] [address] 02/23/2020 11:11:12 02/23/2020 11:39:08 Scleral icterus 102516994 H15.89 [id number] Emelia Tellez MD [address] [place] [address] 09/23/2020 13:43:26 09/23/2020 14:11:51 Gastroesophageal reflux disease without esophagitis 863307566 K21.9 Pruritic rash 63406135 L 28.2 let me know if not improving or if worsens [id number] Danni Neil APRN [place] [address] [place] [address] 10/16/2020 13:36:53 10/16/2020 14:18:31 Pruritic rash 37396257 L28.2 Rash is not present today, Patient offered reassuranc e that I do not see concerning features suggestive of an auto-immun e condition [id number] RUBEN [place] [address] [place] [address] 12/18/2020 12:29:31 12/18/2020 13:35:55 Skin tag 722362030 L91.8 Vitiligo 04805096 L80 [id number] RUBEN Dave [employer] [address] [place] [address] [place] [address] 02/12/2022 08:47:00 02/12/2022 09:21:48 Routine gynecologic examination done 1371775833 9101 Z01.419 Depression screening 171 000319 Z13.89 PHQ-9 completed today. Diet education 75324002 Z71.3 Counseling 669372134 Z71 .82 Exercise counselcolton willoughby Patient encouraged to exercise 30 minutes 5 days a week. Examinatio n of blood pressure 315399668 Z01.30 Vaccine de clined by patient 4290201746 02 Z28.21 Pt declined flu vaccine today. Screening mammography 24 843220 Z12.31 Scheduled 03/06/22 Screening for malignant neoplasm of colon 743425706 Z12.11 Positive cologuard on 01/29/22 - GI referral was placed. Screening for malignant neoplasm of ovary 760553697 Z12.73 Screening for malignant neoplasm of cervix 592749793 Z12.4 Z11.3 Patient advised that I will follow up with results. Reduced libido 1632354 R 68.82 Vitiligo 45834565 L80 Vitiligo noted in vaginal area Vaginal dr ni on intercourse 145553807 N89.8 [id number] Emelia Tellez MD [address] [place] [address] 02/14/2021 08:59:26 02/14/2021 10:01:20 Cobalamin deficiency 759367423 E53.8 continue supplement ation OTC Gastroesop hageal reflux disease without esophagitis 184977600 K21.9 controlled on PPI Iron defic iency anemia 16343072 D50.9 Vitiligo 79523047 L80 unchanged Vitamin D deficiency 347 40032 E55.9 she has been out of OTC supplement ation; will restart it Hyperlipidemia 39651789 E78.5 continue OTC supplement ation General ex amination of patient 612152406 Z00.00 Endocrine/ metabolic screening 101995591 Z13.228 Exercises education, guidance, and counseling 942572071 Z71.82 encouraged to get regular exercise Dietary ma nagement surveillance 478465094 Z71.3 Family his tory of osteoporosis 551196813 Z82.62 DEXA 03/14/20 - nl, recheck 5 yrs Vaccine de clined by patient 6241915473 02 Z28.20 flu and shingrix and covid Screening for cardiovascular system disease 479170070 Z13.6 Body mass index 30+ - obesity 285369788 Z68.36 [id number] Emelia Tellez MD [address] [place] [address] 01/13/2022 10:39:06 01/13/2022 11:50:19 Cobalamin deficiency 984962353 E53.8 continue supplement ation OTC Gastroesop hageal reflux disease without esophagitis 488058954 K21.9 controlled on PPI prn Vitiligo 29358228 L80 unchanged Vitamin D deficiency 347 85068 E55.9 continue OTC supplement ation Hyperlipidemia 66276581 E78.5 General ex amination of patient 874970782 Z00.00 Exercises education, guidance, and counseling 795613931 Z71.82 encouraged to get regular exercise Family his tory of osteoporosis 212221456 Z82.62 DEXA 03/14/20 - nl, recheck 5 yrs Vaccine de clined by patient 1704794295 02 Z28.20 flu and shingrix and covid Screening for cardiovascular system disease 602277880 Z13.6 Body mass index 30+ - obesity 777422626 Z68.36 Screening for malignant neoplasm of colon 218163861 Z12.11 Screening mammography 24 683024 Z12.31 she is scheduled Hyperglycemia 17880656 R 73.9 Adult heal th examination 010540608 Z00.00 Depression screening 171 870506 Z13.89 Examinatio n of blood pressure 801384682 Z01.30 Diet education 85547189 Z71.3 Counseling 615856375 Z71 .82 Exercise counseling . Patient encouraged to exercise 30 minutes 5 days a week. [address] [facility] ed risk for falls 126259337 Z91.81 STEADI FAST screening score of ____0_. Advance care planning 71 2642882 Z71.89 [place] living will packet given to pt Epigastric pain 24438138 R10.13 [id number] Danni Neil APRN [facility] [address] [place] [address] 12/23/2021 09:39:24 12/23/2021 10:14:50 Pruritic disorder 941399969 L29.9 Vitiligo 26457731 L80 [id number] Cassie Barraza APRN [place] [employer] [address] [place] [address] [place] [address] 02/22/2023 09:50:35 02/22/2023 10:18:13 Routine gynecologic examination done 9543093820 9101 Z01.419 Depression screening 171 809695 Z13.31 PHQ-9 completed today. Diet education 84387828 Z71.3 Counseling 990416664 Z71 .82 Exercise counselcolton willoughby Patient encouraged to exercise 30 minutes 5 days a week. Examinatio n of blood pressure 896400786 Z01.30 Vaccine de clined by patient 8949831114 02 Z28.21 Pt declined flu vaccine today. Screening mammography 24 403935 Z12.31 Scheduled 03/02/23 Screening for malignant neoplasm of colon 445574185 Z12.11 Completed 03/16/22 @ [facility]. Screening for malignant neoplasm of ovary 444535950 Z12.73 Screening for malignant neoplasm of cervix 195294463 Z12.4 Z11.3 Patient advised that I will follow up with results. Reduced libido 9585996 R 68.82 Vitiligo 54240685 L80 Vitiligo noted in vaginal area Vaginal dr ni on intercourse 996040278 N89.8 Disorder of eye 58976773 4 H57.9 Pt states she has been having irritation of the right eye on and off for a few weeks.She is planning to scheduled an appt with her PCP.Encour aged to f/u with PCP or opthamolog y. [id number] Emelia Tellez MD [place] [address] [facility] [place] [address] 01/14/2023 10:13:46 01/14/2023 11:16:59 Cobalamin deficiency 328828675 E53.8 continue supplement ation OTC Gastroesop hageal reflux disease without esophagitis 118537221 K21.9 controlled on pantoprazo le 40 mg prn Vitiligo 97914464 L80 unchanged Vitamin D deficiency 347 40248 E55.9 continue OTC supplement ation Hyperlipidemia 96893404 E78.5 diet controlled Family his tory of osteoporosis 486376815 Z82.62 DEXA 03/14/20 - nl, recheck 5 yrs Vaccine de clined by patient 6768338953 02 Z28.20 flu and shingrix and covid Body mass index 30+ - obesity 657550798 Z68.36 Screening mammography 24 717077 Z12.31 she is scheduled Examinatio n of blood pressure 375573639 Z01.30 Diet education 49692267 Z71.3 Counseling 043956264 Z71 .82 Exercise counseling . Patient encouraged to exercise 30 minutes 5 days a week. At [facility] ed risk for falls 236186510 Z91.81 STEADI FAST screening score of ____1 . Advance care planning 71 5338751 Z71.89 [place] living will packet given to pt Colorectal cancer detected by DNA-based stool screening 750193810 R19.5 01/29/22 Adult heal th examination 501090282 Z00.00 Depression screening 171 406853 Z13.31 Finding of body mass index 304612981 E66.9 Pain of knee region 1003 566183 M25.569 cont ice and/or heat. will add diclofenac gel to see if helps [id number] RUBEN [place] [employer] [address] [facility] [place] [address] 03/02/2024 09:57:36 03/02/2024 10:30:54 Routine gynecologic examination done 3738370906 9101 Z01.419 Depression screening 171 628058 Z13.31 PHQ-9 completed today. Diet education 22647955 Z71.3 Counseling 915875588 Z71 .82 Exercise counsellin g. Patient encouraged to exercise 30 minutes 5 days a week. Examinatio n of blood pressure 941304990 Z01.30 Vaccine de clined by patient 7574227403 02 Z28.21 Pt declined flu vaccine today. Screening mammography 24 188536 Z12.31 Order placed on 01/21/24 - she is scheduled for 03/13/24 @ [facility] Screening for malignant neoplasm of colon 757337021 Z12.11 Completed 03/16/22 @ [facility] - repeat in 5 years Screening for malignant neoplasm of ovary 736132424 Z12.73 Screening for malignant neoplasm of cervix 834222512 Z12.4 Z11.3 Patient advised that I will follow up with results. Reduced libido 0329348 R 68.82 Vitiligo 40503898 L80 Vitiligo noted in vaginal area Vaginal dr ni on intercourse 245315572 N89.8 Body mass index 30+ - obesity 751754528 Z68.36 Discussed with patient her BMI being above the advised range and diagnosis of obesity. Encourage regular physical activity and limited carbohydra te and fat, calorie controlled diet. Advised 6 month F/U with family physician to assess progress towards weight loss. Obesity 522666232 E66.9 [id number] Emelia Tellez MD [address] [place] [address] 02/25/2023 09:53:07 02/25/2023 11:00:14 Pain in eye 13709144 H57.11 [id number] Danni Neil APRN [facility] [address] [place] [address] 03/10/2023 10:05:49 03/10/2023 12:19:31 Pruritic disorder 709066507 L29.9 Vitiligo 01823508 L80 [id number] Emelia Tellez MD [address] [place] [address] 01/21/2024 07:52:41 01/21/2024 08:29:08 Cobalamin deficiency 883724730 E53.8 continue supplement ation with SL 1000 mcg qd Gastroesop hageal reflux disease without esophagitis 574337519 K21.9 symptoms controlled on pantoprazo le 40 mg prn Vitiligo 84617791 L80 unchanged Vitamin D deficiency 347 13005 E55.9 continue OTC supplement ation Hyperlipidemia 16292884 E78.5 diet controlled Family his tory of osteoporosis 346189046 Z82.62 DEXA 03/14/20 - nl, recheck 5 yrs Vaccine de clined by patient 1189767240 02 Z28.20 flu and shingrix and covid and penumonia Body mass index 30+ - obesity 710866345 Z68.36 Screening mammography 24 030178 Z12.31 [id number] Shonda Maya DO [facility] [address] [place] [address] 08/10/2024 10:51:22 08/10/2024 11:25:02 Streptococcal sore throat 74055429 J02.0 1631611 Patient tested negative for Strep, however has erythema of posterior oropharynx and clinical manifestat ions of Strep including sore throat, and was recently exposed to individual s who were positive for Strep. Will treat with penicillin V 500 mg BID x 10 days. [id number] Emelia Tellez MD [facility] [address] [place] [address] 12/01/2024 08:54:25 12/01/2024 09:34:46 Acute suppurative otitis media with spontaneous rupture of ear drum 58232303 H66.012 5876203376 nothing in ear besides med RTC if pain and drainage not improving into next week, or if hearing isn't improving in 2-3 weeks [id number] Emelia Tellez MD [facility] [address] [place] [address] 01/26/2025 10:19:23 01/26/2025 10:53:09 Cobalamin deficiency 310686462 E53.8 continue supplement ation with SL 1000 mcg qd Gastroesop hageal reflux disease without esophagitis 685221932 K21.9 symptoms controlled on pantoprazo le 40 mg prn Vitiligo 01507408 L80 unchanged Vitamin D deficiency 347 87711 E55.9 continue OTC supplement ation Hyperlipidemia 71474280 E78.5 diet controlled Family his tory of osteoporosis 100494494 Z82.62 DEXA 03/14/20 - nl, recheck 5 yrs Vaccine de clined by patient 4112163195 02 Z28.20 flu and shingrix and covid and pneumonia Body mass index 30+ - obesity 569456957 Z68.36 Postmenopausal state 764 56178 Z78.0 408976 Right flank pain 3209015 09 R10.9 498252 Screening mammography 24 517544 Z12.31 03257753 Edema of foot 997561810 R60.0 418886 R. sounds like venous insufficie ncy. encouraged leg elevation above the heart when at rest. compressio n stockings can help too [id number] RUBEN Dave [employer] [address] [facility] [place] [address] 03/12/2025 08:53:52 03/12/2025 09:28:12 Routine gynecologic examination done 1346031391 9101 Z01.419 BSE reviewed and recommende d . Reviewed calcium needs, exercise, and prevention of osteoporos is . Periodic colonoscop y screening recommende d . Mammogram recommende d yearly. Depression screening 171 489118 Z13.31 PHQ-9 completed today. Diet education 53614001 Z71.3 Counseling 890870558 Z71 .82 Exercise counselcol[place] g. Patient encouraged to exercise 30 minutes 5 days a week. Examinatio n of blood pressure [id number] Z01.30 Vaccine de clined by patient [id number] 02 Z28.21 Pt declined flu vaccine today. Screening mammography 24 [id number] Z12.31 The process and rationale behind breast cancer screening were discussed with the patient. e USPSTF recommenda tions for screening mammograph y were presentedT he patient was advised that any abnormal results would be promptly addressed. MMG is scheduled for this Wednesday Screening for malignant neoplasm of colon [id number] Z12.11 Completed 03/16/22 @ [facility] - repeat in 5 years Postmenopausal state [id number] Z78.0 Z13.820 Z01.419 DEXA is scheduled for later today. Screening for malignant neoplasm of ovary [id number] Z12.73 Please give patient [facility] O[facility] Cancer Screening Pamphlet, if she is not already participat ing in the program. Obese class II [id number] 1 98723 E66.812 Z68.36 [id number] Screening for malignant neoplasm of cervix [id number] Z12.4 Z11.3 Pap test no longer indicated due to patient age, with history of adequate and normal previous screening. Reduced libido 2393403 R 68.82 Vitiligo [id number] L80 Vitiligo noted in vaginal area Vaginal dr ni on intercourse [id number] N89.8 She tried PVC after her 2022 last visit, and stopped. States she had yellowing of the eyes and back pain when using PVC. Health Concerns Section Related Observation LastModified by Organization Detai ls LastModified Time None Recorded Concern Status LastModified by Organization Details LastModified Time None Recorded Advance Directives Directive N: Payers Insurance Date Sequence Insurance Name Policy Number Policy Wahl Covered Member ID Wahl Member ID Guarantor Name 01/18/2018 1 [employer] [id number] Morelia Lamonte [id number] Morelia Lamonte 01/21/2024 1 [employer] [place] ([place]ICA[place]) [id number] Morelia Lamonte [id number] Morelia Lamonte 03/13/2025 1 [employer] [id number] Morelia Lamonte [id number] Morelia Lamonte 01/21/2024 1 AETNA [facility] (MEDICAID HMO) [id number] Morelia Lamonte [id number] Morelia Lamonte 03/10/2025 [place] [place]ID) Morelia Lamonte [id number] Morelia Lamonte 05/29/2019 [employer] Morelia Lamonte Morelia Lamonte 07/20/2017 1 [employer] [place] Morelia Lamonte [id number] Morelia Lamonte 07/04/2016 1 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 Morelia Lamonte 03/12/2025 2 [employer] [place] Morelia Lamonte [id number] Morelia Lamonte 03/12/2025 2 [employer] [place] ([place]IC[place]AC[place] VANTAGE - HMO) Morelia Lamonte [id number] Morelia Lamonte 03/13/2025 1 [employer] (MEDICARE REPLACEMENT/AD VANTAGE - PPO) [id number] Morelia Lamonte [id number] Morelia Lamonte Notes Date Note Type Note Provider Name and Address Organization Details Recorded Time 03/02/2024 text/html Annual - MOBRepo rted by PatientHistoryFor history, patient reportslast annual exam: 02/22/23,no gynecologic complaints,no change in interval history, andnumber of sexual partners: (1).ContraceptionFor current contraception, patient reportsmonogamous relationship,tubal ligation, andpostmenopausal.Prev entative measuresFor preventive measures, patient reportsneeds to schedule mammogrambut reportsup to date on colonoscopy screening,encourage self breast examination, andencourage regular exercise. Morelia is a 64 year old who presents today as an established patient for an annual exam. Her previous annual exam was in 2022, with myself.She is naturally menopausal. She has been menopausal since age 49. She has never used HRT. She is still sexually active with the same partner as last visit.Other than needing a preventive exam, she is complaining of vaginal dryness with intercourse and a decrease in libido. She believes that her decrease is partly due to the pain associated with the act of intercourse.She tried PVC after her last visit, and stopped. States she had yellowing of the eyes and back pain when using PVC. Cassie Barraza APRN [address], [place], [address], [facility] 03/02/2024 10:24:12 08/10/2024 text/html ROS as noted in the HPI Patient here for sore throat x 5 days, vomited one day post nasal drip has not been able to sleep last few days, has gargled salt water and drank tea. possibly exposed to strep. Patient states that she saw her grandchildren over the weekend on Wednesday and they had Strep recently (within the past several weeks) and she began feeling sick after that. Patient states that she began having symptoms on Wednesday of sore throat, post nasal drip; denies rhinorrhea, cough, fevers. Patient reports that she had chills one day and had an episode of vomiting as well. Patient denies recent sick contacts aside from her grandchildren. Patient has tried salt water gargles, lozenges which have helped but not greatly. Flash Aly DO [address], [place], [address], [facility] 08/10/2024 12:18:11 12/01/2024 text/html here with ear pain it has been going on for about a week and a half only in the left ear all stopped in ear and that side of her head. was more painful until a day ago now having watery clear drainage. she has some mild head congestion. no f/c/n/v/d unable to sleep the past few nights d/t it popping and cracking in that ear still cannot hear out of that ear Emelia Tellez MD [address], [place], [address], [place] [facility] 12/01/2024 09:39:56 01/26/2025 text/html here for routine f/u seen here in November with L suppurative OM. all healed no concerns today had seen vascular surgery. clean carotid duplex in trying to eat right. she is active but not as much as she had been, does video work out she is taking daily Vit D OTC 2000 units qd and B12 SLtaking pantoprazole prn. hardly ever needs it no skin changes she has had pain on and off on the R side for about 4-6 months. not related to activity. she has also noticed that her urine will be darker at times, even though she makes sure to drink plenty of water her RLE has been swelling on and off. worse at the end of the day and will go down by morning. hasn't noticed if related to any activity. no skin changes with it. will be uncomfortable Emelia Tellez MD [address], [place], [address], [place] [facility] 01/26/2025 11:15:21 03/12/2025 text/html Annual - MOBRepo rted by PatientHistoryFor history, patient reportslast annual exam: 03/02/24,no change in interval history, andnumber of sexual partners: (1).ContraceptionFor current contraception, patient reportssatisfied with current contraception,monogamo us relationship,tubal ligation, andpostmenopausal.Prev entative measuresFor preventive measures, patient reportsneeds to schedule dexa scan ( placed order 03/06/25, scheduled today)but reportsmammogram performed within the past year (03/13/24. placed order 03/06/25, scheduled 03-14-25)andup to date on colonoscopy screening (03/16/22 [facility] repeat 2026). Morelia is a 65 year old female who presents today as an established patient for an annual exam. Her previous annual exam was in 2023, with myself. She is naturally menopausal. She has been menopausal since age 49. She has never used HRT. She is still sexually active with the same partner as last visit.Other than needing a preventive exam, she is complaining of vaginal dryness with intercourse and a decrease in libido. She believes that her decrease is partly due to the pain associated with the act of intercourse. She tried PVC after her 2022 last visit, and stopped. States she had yellowing of the eyes and back pain when using PVC. Cassie Barraza, STEMMER MACHINE [address], [place], [address], [place] [facility] 03/12/2025 09:24:59 OBGyn Episode No OBEpisode recorded.
--- OUTSIDE RECORDS SUMMARY | 2025-03-14 10:05 | XMS_ITS | Clinical Summary ---
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 Name Role Phone Emelia Tellez MD Primary Care Provider [phone] Allergies Active Allergy Reactions Criticality Noted Date Comments Codeine Itching Medium 05/17/2009 Medications No known medications Family History Medical History Relation Name Comments Colon Polyps Mother Relation Name Status Comments Mother Social History Tobacco Use Types Packs/Day Years Used Date Smoking Tobacco: Never Assessed Comments Unknown Sex and Gender Information Value Date Recorded Sex Assigned at Not on file Legal Sex Female 3:59 AM EDT Gender Identity Not on file Sexual Orientation Not on file Last Filed Vital Signs Vital Sign Reading Time Taken Comments Blood Pressure 107/61 03/16/2022 9:55 AM EST Pulse 65 03/16/2022 9:55 AM EST Temperature 36.4 C (97.5 F) 03/16/2022 8:27 AM EST Respiratory Rate 18 03/16/2022 8:27 AM EST Oxygen Saturation 98% 03/16/2022 9:55 AM EST Inhaled Oxygen Concentration - - Weight 102.5 kg (226 lb) 03/16/2022 8:27 AM EST Height 160 cm (5' 3 ) 03/16/2022 8:27 AM EST Body Mass Index 40.03 03/16/2022 8:27 AM EST Plan of Treatment Health Maintenance Due Date Last Done Comments Annual Wellness Exam 1963 Hepatitis C Screening 1977 FIT 01/13/2004 Sigmoidoscopy 01/13/2004 Virtual Colonography 01/13/2004 Pneumococcal Vaccine 50+ (1 of 1 - PCV) 2009 RSV or 60+ (1 - Ris k 50-74 years 1-dose series) 2009 Zoster (1 of 2) 2009 COVID-19 Vaccine (1 - 2024-2 6 season) 2025 Influenza Vaccine (#1) 2025 Cologuard 01/29/2025 01/29/2022, 11/18/2018 Breast Cancer Screening 03/02/2025 03/02/20 23, 08/24/2016 DTaP/TDaP/Td (4 - Td or Tdap) 10/12/2027, 05/23/2009, 09/11/2005 Colon Cancer Screening 03/16/2032 Colonoscopy 03/16/2032 03/16/2022 Bone Density Screening Completed 12/25/2013 Hepatitis B Vaccine Aged Out No longe r eligible based on patient's age to complete this topic Meningococcal B Vaccine Aged Out No l onger eligible based on patient's age to complete this topic Procedures Procedure Name Priority Date/Time Associated Diagnosis Comments MM MAMMO DIGITAL CESAR SCREEN BILAT Routine 03/02/2023 12:50 PM EDT Encounter for screening mammogram for malignant neoplasm of breast GMED COLONOSCOPY Routine 03/16/2022 9:20 AM EST Screening for colon cancer Positive colorectal cancer screening using Cologuard test DX BONE DENSITY AXIAL SKELETON Routine 12/25/2013 11:13 AM EDT Special screening for osteoporosis from Last 3 Months or Most Recently Relevant to Health Maintenance Results * MM MAMMO DIGITAL CESAR SCREEN BILAT (03/02/2023 12:50 PM EDT) Anatomical Region Laterality Modality Breast Bilateral Mammography 03/02/2023 2:29 PM EDT Impressions 03/02/2023 2:29 PM EDT Negative ([id number]) ~ RECOMMENDATION: Routine screening mammogram in 1 year. ~ DISCLAIMER * Any patient with a palpable abnormality, unexplained by breast imaging, should be managed on clinical basis by the attending physician. * Breast imaging has a false negative rate of 15%. * The patient was notified by mail of the results of this examination. *The patient's information was entered into a reminder system with a target due date for the next mammogram, in accordance with the [employer] [place] [employer] and the Society of Breast Imaging recommendations. Narrative 03/02/2023 2:29 PM EDT Procedure:MM MAMMO DIGITAL CESAR SCREEN BILAT ~ Reason for exam: screening, asymptomatic. Z12.31-Encounter for screening mammogram for malignant neoplasm of [id number]-[id number]-CM ~ MM MAMMO DIGITAL CESAR SCREEN BILAT Bilateral CC and MLO view(s) were taken. Technologist: Junior Medina There are scattered fibroglandular densities. Prior study comparison: Compared with prior studies the most recent being 02/25/98 No mammographic evidence of malignancy. ~ Procedure Note Nurys Swenson MD - 03/02/2023 Procedure:MM MAMMO DIGITAL CESAR SCREEN BILAT ~ Reason for exam: screening, asymptomatic. Z12.31-Encounter for screening mammogram for malignant neoplasm of qptaom-IKZ-22-CM ~ MM MAMMO DIGITAL CESAR SCREEN BILAT Bilateral CC and MLO view(s) were taken. Technologist: Junior Medina There are scattered fibroglandular densities. Prior study comparison: Compared with prior studies the most recentbeing 02/25/98 No mammographic evidence of malignancy. ~ IMPRESSION: Negative ([id number]-5) ~ RECOMMENDATION: Routine screening mammogram in 1 year. ~ DISCLAIMER * Any patient with a palpable abnormality, unexplained by breast imaging, should be managed on clinical basis by the attending physician. * Breast imaging has a false negative rate of 15%. * The patient was notified by mail of the results of this examination. *The patient's information was entered into a reminder system with atarget due date for the next mammogram, in accordance with the [employer] [place] [employer] and the Society of Breast Imaging recommendations. Emelia Tellez MD IMG MAMMOGRAPHY ORDERABLES Fi nal Result * GMED COLONOSCOPY (03/16/2022 9:20 AM EST) 03/16/2022 9:20 AM EST Impressions [facility] - 03/16/2022 9:35 AM EST Plan: This section is an excerpt of the full report. us Nic Booker MD GI PROCEDURE ORDERABLES Final Result [facility] [address] [place] [address] * DX BONE DENSITY AXIAL SKELETON (12/25/2013 11:13 AM EDT) Anatomical Region Laterality Modality Dexa Scan Narrative 12/27/2013 12:10 PM EDT A dexa scan was performed. This exam was read and signed by a Radiologist. The signed final Dexa report should have already been faxed to the referring Doctor. Procedure Note Inderjit Howard MD - 12/27/2013 A dexa scan was performed. This exam was read and signed by a Radiologist.The signed final Dexa report should have already been faxed to thereferring Doctor. us Not In [facility] Provider IMG DEXA ORDERABLES Final R esult from Last 3 Months or Most Recently Relevant to Health Maintenance [place] [address] [address] [place] [id number] [place] [id number] MDR Care Teams Vehicle Fuel Systems Converter Relationship Specialty Start Date End Date Emelia Tellez MD [address] [place] [id number] PCP - General Family Medicine 03/16/22
--- OUTSIDE RECORDS SUMMARY | 2025-03-14 10:05 | XMS_ITS | Continuity of Care Document ---
Author Organization [facility] Address [address] [place] [place] [address] Care Team Providers Care Living Supervisor Name Role Phone DANA IRELAND Eyeglass Frames Polisher Assessment No assessment recorded. Plan of Treatment Reminders Order Date Submit Date Provider Last Modified By Organization Details Last Modified Time Details Appointments None recorded. Lab urinalysis , dipstick 2024 025 [facility], [address], [place], [address], 5 11:41:42 lipid panel, serum 2024 025 [facility], [address] [place] [address], [address], 5 06:16:56 CMP, serum or plasma 2024 025 [facility], [address] [place] [address], [address], 5 06:16:55 CBC w/ auto diff 2024 025 [facility], [address] [place] [address], [address], 5 06:16:55 HbA1c (hemoglobi n A1c), blood 20[address] [facility], [address], 06:16:56 vitamin B12 + folate, serum or blood 2024 025 [facility], [address] [facility], [place], [address], 08:35:34 Referral None recorded. Procedures None recorded. Surgeries None recorded. Imaging MAMMO, screening, digital, bilateral 2024 025 [facility] Scheduling Department -New Scheduling Process, [address] [facility] [address], [place], [address], 09:06:02 US, renal 2024 025 [facility], [address] [place] [address] [place], [address], 09:11:03 DEXA, vertebral fracture assessment [address] (Centralized Scheduling), [address] [place] [address] , [place], [address], 08:05:31 Medication Orders cyanocobal frias (vit B-12) 1,000 mcg sublingual tablet 2024 025 [facility] [id number], [address] [place] [address] [place], [address], 10:42:38 Patient TargetsNo targets recorded. Patient Instructions Encounter Date Encounter Id Patient Instructions Last Modified By Organization Details Last Modified Time 01/26/2025 [id number] Pneumococcal Conjugate Vaccine: What You Need to Know [email or web address] Not available 01/26/2025 10:42:25 learning about healthy weight nguttman Not available 01/26/2025 10:42:25 Learning About Being Physically Active nguttman Not available 01/26/2025 10:42:25 Reason for Referral None Reported. Results Created Date Observation Date Name Description Value Unit Range Abnormal Flag Note LastModifiedBy Organization Detail LastModifiedTime 01/27/2001/27/2025 CBC WITH DIFFE RENTI AL/PL ATELE T WBC 6.1 x10e3 /uL 3.4-10 .8 normal Not Available [facility] ([facility]) [address] [place], [address], 01/27/2025 06:16:55 01/27/20 25 01/27/2025 CBC WITH DIFFE RENTI AL/PL ATELE T RBC 4.65 x10e6 /uL 3.77-5 .28 normal Not Available [facility] ([facility]) [address] [place], [address], 01/27/2025 06:16:55 01/27/20 25 01/27/2025 CBC WITH DIFFE RENTI AL/PL ATELE T hemoglobin 13.7 g/dL 11.1-1 5.9 normal Not Available [facility] ([facility]) [address] [place], [address], 01/27/2025 06:16:55 01/27/20 25 01/27/2025 CBC WITH DIFFE RENTI AL/PL ATELE T hematocrit 44.0 % 34.0-4 6.6 normal Not Available [facility] ([facility]) [address] [place], [address], 01/27/2025 06:16:55 01/27/2001/27/2025 CBC WITH DIFFE RENTI AL/PL ATELE T MCV 95 fL 79-97 normal Not Available [facility] ([facility]) [address] [place], [address], 01/27/2025 06:16:55 01/27/20 25 01/27/2025 CBC WITH DIFFE RENTI AL/PL ATELE T MCH 29.5 pg 26.6-3 3.0 normal Not Available [facility] ([facility]) [address] [place], [address], 01/27/2025 06:16:55 01/27/20 25 01/27/2025 CBC WITH DIFFE RENTI AL/PL ATELE T MCHC 31.1 g/dL 31.5-3 5.7 below low normal Not Available [facility] ([facility]) [address] [facility], [place], [address], 01/27/2025 06:16:55 01/27/20 25 01/27/2025 CBC WITH DIFFE RENTI AL/PL ATELE T RDW 13.4 % 11.7-1 5.4 Not Available [facility] ([facility]) [address] [facility], [place], [address], 01/27/2025 06:16:55 01/27/2001/27/2025 CBC WITH DIFFE RENTI AL/PL ATELE T platelets 281 x10e3 /uL 150-45 0 normal Not Available [facility] ([facility]) [address] [facility], [place], [address], 01/27/2025 06:16:55 01/27/20 25 01/27/2025 CBC WITH DIFFE RENTI AL/PL ATELE T neutrophils 62 % not estab. normal Not Available [facility] ([facility]) [address] [facility], [place], [address], 01/27/2025 06:16:55 01/27/20 25 01/27/2025 CBC WITH DIFFE RENTI AL/PL ATELE T lymphs 28 % not estab. normal Not Available [facility] ([facility]) [address] [facility], [place], [address], 01/27/2025 06:16:55 01/27/20 25 01/27/2025 CBC WITH DIFFE RENTI AL/PL ATELE T monocytes 8 % not estab. normal Not Available [facility] ([facility]) [address] [facility], [place], [address], 01/27/2025 06:16:55 01/27/20 25 01/27/2025 CBC WITH DIFFE RENTI AL/PL ATELE T eos 2 % not estab. normal Not Available [facility] ([facility]) [address] [place], [address], 01/27/2025 06:16:55 01/27/20 25 01/27/2025 CBC WITH DIFFE RENTI AL/PL ATELE T basos 0 % not estab. normal Not Available [facility] ([facility]) [address] [facility], [place], [address], 01/27/2025 06:16:55 01/27/20 25 01/27/2025 CBC WITH DIFFE RENTI AL/PL ATELE T immature cells CLEATER Not Available [facility] ([facility]) [address] [place], [address], 01/27/2025 06:16:55 01/27/20 25 01/27/2025 CBC WITH DIFFE RENTI AL/PL ATELE T neutrophils (absolute) 3.7 x10e3 /uL 1.4-7. 0 normal Not Available [facility] ([facility]) [address] [place], [address], 01/27/2025 06:16:55 01/27/20 25 01/27/2025 CBC WITH DIFFE RENTI AL/PL ATELE T lymphs (absolute) 1.7 x10e3 /uL 0.7-3. 1 normal Not Available [facility] ([facility]) [address] [place], [address], 01/27/2025 06:16:55 01/27/20 25 01/27/2025 CBC WITH DIFFE RENTI AL/PL ATELE T monocytes(ab solute) 0.5 x10e3 /uL 0.1-0. 9 normal Not Available [facility] ([facility]) [address] [place], [address], 01/27/2025 06:16:55 01/27/20 25 01/27/2025 CBC WITH DIFFE RENTI AL/PL ATELE T eos (absolute) 0.1 x10e3 /uL 0.0-0. 4 normal Not Available [facility] ([facility]) [address] [facility], [place], [address], 01/27/2025 06:16:55 01/27/20 25 01/27/2025 CBC WITH DIFFE RENTI AL/PL ATELE T baso (absolute) 0.0 x10e3 /uL 0.0-0. 2 normal Not Available [facility] ([facility]) [address] [facility], [place], [address], 01/27/2025 06:16:55 01/27/2001/27/2025 CBC WITH DIFFE RENTI AL/PL ATELE T immature granulocytes 0 % not estab. Not Available [facility] ([facility]) [address] [place], [address], 01/27/2025 06:16:55 01/27/20 25 01/27/2025 CBC WITH DIFFE RENTI AL/PL ATELE T immature grans (abs) 0.0 x10e3 /uL 0.0-0. 1 Not Available [facility] ([facility]) [address] [place], [address], 01/27/2025 06:16:55 01/27/2001/27/2025 CBC WITH DIFFE RENTI AL/PL ATELE T NRBC CLEATER Not Available [facility] ([facility]) [address] [facility], [place], [address], 01/27/2025 06:16:55 01/27/20 25 01/27/2025 CBC WITH DIFFE RENTI AL/PL ATELE T hematology comments: CLEATER Not Available [facility] ([facility]) [address] [facility], [place], [address], 01/27/2025 06:16:55 01/27/20 25 01/27/2025 COMP. METAB OLIC PANEL (14) glucose 103 mg/dL 70-99 above high normal Not Available [facility] ([facility]) [address] [facility] [place], [address], 01/27/2025 06:16:55 01/27/20 25 01/27/2025 COMP. METAB OLIC PANEL (14) BUN 16 mg/dL 8-27 normal Not Available [facility] ([facility]) [address] [facility] [place], [address], 01/27/2025 06:16:55 01/27/20 25 01/27/2025 COMP. METAB OLIC PANEL (14) creatinine 0.83 mg/dL 0.57-1 .00 normal Not Available [facility] ([facility]) [address] [facility] [place], [address], 01/27/2025 06:16:55 01/27/20 25 01/27/2025 COMP. METAB OLIC PANEL (14) eGFR 78 mL/mi n/1.7 3 >59 normal Not Available [facility] ([facility]) [address] [place], [address], 01/27/2025 06:16:55 01/27/20 25 01/27/2025 COMP. METAB OLIC PANEL (14) BUN/creatini ne ratio 19 12-28 normal Not Available [facility] ([facility]) [address] [place], [address], 01/27/2025 06:16:55 01/27/20 25 01/27/2025 COMP. METAB OLIC PANEL (14) sodium 140 mmol/ L 134-14 4 normal Not Available [facility] ([facility]) [address] [place], [address], 01/27/2025 06:16:55 01/27/20 25 01/27/2025 COMP. METAB OLIC PANEL (14) potassium 4.7 mmol/ L 3.5-5. 2 normal Not Available [facility] ([facility]) [address] [place], [address], 01/27/2025 06:16:55 01/27/20 25 01/27/2025 COMP. METAB OLIC PANEL (14) chloride 101 mmol/ L 96-106 normal Not Available [facility] ([facility]) [address] [place], [address], 01/27/2025 06:16:55 01/27/20 25 01/27/2025 COMP. METAB OLIC PANEL (14) carbon dioxide, total 23 mmol/ L 20-29 normal Not Available [facility] ([facility]) [address] [place], [address], 01/27/2025 06:16:55 01/27/20 25 01/27/2025 COMP. METAB OLIC PANEL (14) calcium 10.1 mg/dL 8.7-10 .3 normal Not Available [facility] ([facility]) [address] [place], [address], 01/27/2025 06:16:55 01/27/20 25 01/27/2025 COMP. METAB OLIC PANEL (14) protein, total 7.0 g/dL 6.0-8. 5 normal Not Available [facility] ([facility]) [address] [facility] [place], [address], 01/27/2025 06:16:55 01/27/20 25 01/27/2025 COMP. METAB OLIC PANEL (14) albumin 4.3 g/dL 3.9-4. 9 normal Not Available [facility] ([facility]) [address] [facility] [place], [address], 01/27/2025 06:16:55 01/27/20 25 01/27/2025 COMP. METAB OLIC PANEL (14) globulin, total 2.7 g/dL 1.5-4. 5 Not Available [facility] ([facility]) [address] [facility] [place], [address], 01/27/2025 06:16:55 01/27/20 25 01/27/2025 COMP. METAB OLIC PANEL (14) bilirubin, total 0.5 mg/dL 0.0-1. 2 normal Not Available [facility] ([facility]) [address] [facility] [place], [address], 01/27/2025 06:16:55 01/27/20 25 01/27/2025 COMP. METAB OLIC PANEL (14) alkaline phosphatase 102 IU/L 49-135 normal Ple ase note refer ence inter pedro cunningham e Not Available [facility] ([facility]) [address] [facility] [place], [address], 01/27/2025 06:16:55 01/27/20 25 01/27/2025 COMP. METAB OLIC PANEL (14) AST (SGOT) 24 IU/L 0-40 normal Not Available [facility] ([facility]) [address] [facility], [place], [address], 01/27/2025 06:16:55 01/27/20 25 01/27/2025 COMP. METAB OLIC PANEL (14) ALT (SGPT) 20 IU/L 0-32 normal Not Available [facility] ([facility]) [address] [facility] [place], [address], 01/27/2025 06:16:55 01/27/20 25 01/27/2025 LIPID PANEL cholesterol, total 201 mg/dL 100-19 9 above high normal Not Available [facility] ([facility]) [address] [facility] [place], [address], 01/27/2025 06:16:56 01/27/20 25 01/27/2025 LIPID PANEL triglyceride s 127 mg/dL 0-149 normal Not Available [facility] ([facility]) [address] [facility] [place], [address], 01/27/2025 06:16:56 01/27/20 25 01/27/2025 LIPID PANEL HDL cholesterol 49 mg/dL >39 normal Not Available [facility]) [address] [place], [address], 01/27/2025 06:16:56 01/27/20 25 01/27/2025 LIPID PANEL VLDL cholesterol amanda 23 mg/dL 5-40 Not Available [facility] ([facility]) [address] [facility], [place], [address], 01/27/2025 06:16:56 01/27/20 25 01/27/2025 LIPID PANEL LDL chol calc ([facility]) 129 mg/dL 0-99 above high normal Not Available [facility] ([facility]) [address] [facility], [place], [address], 01/27/2025 06:16:56 01/27/20 25 01/27/2025 LIPID PANEL LDL calc comment: CLEATER Not Available [facility] ([facility]) [address] [facility], [place], [address], 01/27/2025 06:16:56 01/27/20 25 01/27/2025 VITAM IN B12 AND FOLAT E vitamin B12 522 pg/mL 232-12 45 normal Not Available [facility] ([facility]) [address] [place], [address], 01/27/2025 06:16:56 01/27/20 25 01/27/2025 VITAM IN B12 AND FOLAT E folate (folic acid), serum >20.0 NG/mL >3.0 A serum folat e felicia ntrat ion of less than 3.1 ng/mL is consi dered to repre sent clini amanda defic iency . Not Available [facility] ([facility]) [address] [place], [address], 01/27/2025 06:16:56 01/27/20 25 01/27/2025 HEMOG LOBIN A1C hemoglobin A1C 5.4 % 4.8-5. 6 normal Predi abete s: 5.7 - 6.4 Diabe ani: >6.4 Glyce baltazar contr ol for adult s with diabe ani: <7.0 Not Available [facility] ([facility]) [address] [facility], [place], [address], 01/27/2025 06:16:56 01/27/20 25 01/26/2025 urina lysis , dipst ick Leukocytes Negati ve Not Available [facility] [address], [place], [address], 01/26/2025 10:36:48 01/27/20 25 01/26/2025 urina lysis , dipst ick Nitrite negati ve Not Available [facility] [address], [place], [address], 01/26/2025 10:36:48 01/27/20 25 01/26/2025 urina lysis , dipst ick Urobilinogen .2 Not Available [facility] [address], [place], [address], 01/26/2025 10:36:48 01/27/20 25 01/26/2025 urina lysis , dipst ick Protein Negati ve Not Available [facility] [address], [place], [address], 01/26/2025 10:36:48 01/27/20 25 01/26/2025 urina lysis , dipst ick pH 6.5 Not Available [facility] [address], [place], [address], 01/26/2025 10:36:48 01/27/20 25 01/26/2025 urina lysis , dipst ick Blood Negati ve Not Available [facility] [address], [place], [address], 01/26/2025 10:36:48 01/27/20 25 01/26/2025 urina lysis , dipst ick Specific [place] 1.005 Not Available [facility] [address], [place], [address], 01/26/2025 10:36:48 01/27/20 25 01/26/2025 urina lysis , dipst ick Ketone Negati ve Not Available [facility] [address], [place], [address], 01/26/2025 10:36:48 01/27/20 25 01/26/2025 urina lysis , dipst ick Bilirubin Negati ve Not Available [facility] [address], [place], [address], 01/26/2025 10:36:48 01/27/20 25 01/26/2025 urina lysis , dipst ick Glucose Negati ve Not Available [facility] [address], [place], [address], 01/26/2025 10:36:48 01/27/20 25 01/26/2025 urina lysis , dipst ick Appearance Clear Not Available [facility] [address], [place], [address], 01/26/2025 10:36:48 01/27/20 25 01/26/2025 urina lysis , dipst ick Color Pale Yellow Not Available [facility] [address], [place], [address], 01/26/2025 10:36:48 03/12/20 25 03/12/2025 - dxa bone densi ty with VFA [facility] Name: DENIS ABURTO [address] [employer] Phys: Eric beck MD, [place] [address] : 1959 Age: 65 Sex: F Acct: [id number] Loc: KARAN PHONE #: [phone] Exam Date: 2024 Status : REG CLI FAX #: [phone] Rad# [id number] Unit# [id number] Admit Date: 2024 EXAMS: CPT CODE: [id number] DEXA BONE DENSIT Y WITH VFA 42920 EXAMIN ATION: DUAL X-RAY ABSORP TIOMET RY (DXA) FOR BONE MINERA L DENSIT Y. CLINIC AL INDICA TION: Romero betancourt CLINIC AL HISTOR Y: 65 years old, Female . Postmbobo betancourt TECHNI QUE: An axial (e.g., hips, spine) and/or append icular (e.g., radius ) exam was perfor med, as approp riate, using [employer] densit ometer . Images are [...] perfor med using the [facility] [place] FRAX calcul ator based on patien t-repo rted risk factor s. Major osteop orotic fractu re: 7.3%. Hip fractu re: 0.5%. VERTEB RAL FRACTU RE ASSESS MENT: Verteb ral fractu re assess ment from T7-L4 is perfor med using Genant PAGE 1 Signed Report (JET NUED) [facility] Name: DENIS ABURTO [address] [place], [place] [address]a [employer] Phys: Eric beck MD, [place] [address] : 1959 Age: 65 Sex: F Acct: [id number] Loc: ShlomoRAD PHONE #: Exam Date: 2024 Status : REG CLI FAX #: Rad# [id number] Unit# [id number] Admit Date: 2024 EXAMS: CPT CODE: [id number] DEXA BONE DENSIT Y WITH VFA 47401 visual semi-q uantit ative method . No [...] treatm ent can be found at the [facility] t[facility]'s websit e [...] [id number] PAGE 2 Signed Report (JET NUED) [facility] Name: DENIS ABURTO [address] [employer] Phys: Eric beck MD, [place] Krish[place] [facility] [place] [address] : 1959 Age: 65 Sex: F Acct: [id number] Loc: G.RAD PHONE #: Exam Date: 2024 Status : REG CLI FAX #: Rad# [id number] Unit# [id number] Admit Date: 2024 EXAMS: CPT CODE: [id number] DEXA BONE DENSIT Y WITH VFA 76767 Electr onical ly Signed by RYAN Hatch on 2024 at 1257 Report ed and signed by: LESLEY NAYLOR CC: Emelia beck Dictat ed Date/T mallory: 2024 (1257) Techno logist : CATRACHITO Simmons RShahid (R) Transc ribed Date/T mallory: 2024 (1257) Transc riptio nist: DR.STE RIVERA Electr onic Signat ure Date/T mallory: 2024 (1257) Printe d Date/T mallory: 2024 (1620) BATCH NO: N/A PAGE 3 Signed Report CC'ed Logic: Orderi ng Provid er: GUTTMA Ana MOREAUCY Attend ing Provid er: GUTTMA N EMELIA Referr ing Provid er: GUTTMA N EMELIA Consul ting Provid er: GUTTMA N EMELIA [address] , [place], [address], 03/13/2025 10:26:24 Result Notes None recorded. Problems Name Problem SNOMED Code Status Onset Date Resolution Date Notes Provider Name and Address Organization Details Recorded Time Iron deficiency anemia 95090585 Active 2013 Emelia Tellez MD [address], [place], [address] , [place] - [facility] 2 11:46:27 Vitiligo 93388490 Active 2015 Emelia Tellez MD [address], [place], [address] , [place] - [facility] 2 11:46:27 Cobalamin deficiency 352715736 Active 2016 Emelia Tellez MD [address], [place], [address] , [place] - [facility] 2 11:46:27 Gastroesop hageal reflux disease without esophagiti s 389367990 Active 2018 Emelia Tellez MD [address], [place], [address] , [place] - [facility] 2 11:46:27 Vaginal dryness on intercours e 644057535 Active 2019 Susiesachin Fuller null, [place] - [facility] 2 08:03:16 Reduced libido 7283079 Active 2019 Susie Fuller null, [place] - [facility] 2 08:03:14 Vitamin D deficiency 27654220 Active 2021 Emelia Tellez MD [address], [place], [address] , [place] - [facility] 2 11:18:39 Disorder of eye 659215113 Active 2022 Cassie Barraza APRN [address], [place], [address] , [place] - [facility] 3 10:23:46 Obesity 405806954 Active 2023 Emelia Tellez MD [address], [place], [address] , [place] - [facility] 5 12:42:25 Obese class II 1440866314813 05 Active 2024 Cassie Barraza APRN [address], [place], [address] , [place] - [facility] 5 09:15:44 Problem Notes None recorded. Procedures Surgical History Date Name Laterality Status Provider Name and Address Organization Details Recorded Time 03/12/20 25 Most Recent Bone Density completed Emelia Tellez MD [address], [place], [address], [place] - [facility] 03/12/2025 17:37:11 03/13/20 24 Date of Last Mammogram completed Emelia Tellez MD [address], [place], [address], [place] - [facility] 03/15/2024 17:34:21 03/02/20 24 Date of Last Pap Smear completed Cassie Barraza APRN [address], [place], [address], [place] - [facility] 03/07/2024 10:11:11 01/15/20 23 Advance Care Planning completed Alisa SURESH - [facility] 01/14/2023 10:27:40 01/15/20 23 Functional Status Assessed completed Alisa SURESH - [facility] 01/14/2023 10:27:40 03/16/20 22 Date of Last Colonoscopy completed Cassie Barraza, [employer] [address], [place], [address], [place] - [facility] 02/22/2023 09:47:49 03/16/20 22 Colonoscopy completed Susie Alina [place] - [facility] 02/22/2023 09:57:01 01/14/20 22 Advance Care Planning completed Alisa Quach [place] - [facility] 01/13/2022 10:57:20 01/14/20 22 Functional Status Assessed completed Alisa Quach [place] - [facility] 01/13/2022 10:57:20 05/29/19 20 Medication Reconcilliation completed Alisa SURESH - [facility] 05/29/2019 10:45:48 03/24/20 19 Medication Reconcilliation completed Alisa Quach [place] - [facility] 03/24/2019 09:49:21 12/10/19 17 Egd esophagogastrc fndoplsty completed Susie Fuller [place] - [facility] 01/30/2020 08:57:59 12/03/18 89 Tubal Ligation completed Joelle Beck [place] - [facility] 12/01/2024 09:06:00 Imaging Results None recorded. Procedure Notes None recorded. Medical Equipment None Reported. Allergies Allergen ID Allergen Name Allergen Category Reaction Reaction Severity Criticality Documentation Date Start Date Code Code System Note Provider Name and Address Organization Details Recorded Time 88460 Codeine Antitussi ve Cough medicatio n Not available Not available Not available 02/14/20162009 Not Available [facility] 6 10:07:32 89912 codeine phosphate medicatio n Not available Not available Not available 02/14/20162009 2672 RxNorm Not Available [facility] 6 10:07:32 73683 codeine sulfate medicatio n itching Not available Not available 02/14/20162009 09246 RxNorm Not Available [facility] 6 10:07:32 Medications Name Sig Start [...] Disconti nued on: 07/31/19 15 8:56AM;U ser: [email or web address] ;Est. Completi on: 04/01/20 14;Pharm acyVerif ied: 03/27/20 14 4:29PM Not Available Not Available Not Available bacitraci n 500 unit/gram topical ointment Apply to affected ear TID for 4 weeks, repeat PRN 03/02 completed Not Available Not Available Not Available penicilli n V potassium 500 mg tablet Take 1 tablet twice a day by oral route for 10 days. 12/015 completed Not Available Not Available Not Available [...] nued on: 07/25/19 16 10:51AM; User: marie ;EstJeniffer Abbotti on: 07/12/19 16;Indic ation: Vertigo - (16.7804 00);Phar Randy fied: 05/13/19 16 9:41AM Not Available Not [...] Updated DateTime 5 160.02 cm 36.5 kg/m2 54630.0 3 g 18 /min 95 % 95 % 73 /min 125/83 mm[Hg] Joelle Avalosin [place] - [facility] 5 10:25:50 Social History Question Answer Notes LastModified by [...] Blood Transfusion Acceptable In An Emergency? Yes [email or web address] Information not available 04/12/2018 What Is Your Level Of Caffeine Consumption? Moderate [email or web address] Information not available 03/12/2025 How Much Tobacco [...] Or Recreational Drugs Have You Used? None [email or web address] Information not available 04/12/2018 Have You Processed [...] Or The Highest Degree You Have Received? [id number] Information not available 12/01/2024 How Many Days [...] When Did You Quit Smoking? 16+yearssincelast cigarette [email or web address] Information not available 02/11/2021 Hard Of Hearing [...] Do You Have A Medical Power Of Crm Consultant? No [email or web address] Information not available 02/22/2023 What Was The Date Of Your Most Recent Tobacco Screening? 03/12/2025 [email or web address] Information not available 03/12/2025 How Many Children Do You Have? 5 Information not available 04/29/2016 What Is Your Current Pack Years? 10-19packyears [email or web address] Information not available 02/22/2023 Performs Monthly Self-breast Exam? Yes [email or web address] Information no t available 02/22/2023 Do You Use Protection During Sex? Always [email or web address] Information not available 02/22/2023 Do You Use Protection Against STDs? No Information not available 02/12/2022 What Is Your [...] Carbon Monoxide Detectors In Your Home? Yes [email or web address] Information not available 02/11/2021 At What Age [...] Has Tobacco Cessation Counseling Been Provided? No Information not available 03/12/2025 On What Date Was Tobacco Cessation Counseling Provided? 03/12/2025 Information not available 03/12/2025 How Many Years [...] used smokeless tobacco? Never used smokeless tobacco [email or web address] Information not available 01/30/2020 Are you currently [...] use any illicit or recreational drugs? No [email or web address] Information not available 02/11/2021 Do you or [...] available 02/22/2023 What is your occupation? NONE [email or web address] Information not available 02/11/2021 Mental Status Question Answer Note LastModified by Organizat ion Details LastModified Time Do you feel stressed (tense, restless, nervous, or anxious, or unable to sleep at night)? [id number] [email or web address] Information not available 02/11/2021 Do you have difficulty concentrating, remembering or making decisions? No [email or web address] Information no t available 02/22/2023 Family History Relationship Description Onset Age of this Age Resolved Age Notes LastModified by Organization Details LastModified Time Father Atrial fibrillation [email or web address] Not available 07/2024 08:54:11 Father Hypertensive disorder [email or web address] Not available 06/2015 12:49:58 Sister Malignant neoplasm of breast [email or web address] Not available 06/2015 12:48:56 Paternal Grandfather Diabetes mellitus [email or web address] [id number] Not available 06/2015 12:49:20 Maternal Grandmother Heart disease [email or web address] Not available 06/2015 12:49:39 Medical History Condition [...] colitis N Cerebrovascular Disease N Depression N Guillain-[place] N Sleep Apnea N Aneurysm N Bronchitis [...] Time Tdap 09/12/19 06 completed Not Available [facility] 03/12/2025 08:54:39 Tdap 05/23/19 10 completed Not Available [facility] 03/12/2025 08:54:39 Tdap 10/12/19 18 completed Not Available [facility] 05/27/2019 03:55:00 Influenza, split virus, quadrivalent, preservative 04/12/20 18 cancelled patient objection Not Available [facility] 05/27/2019 03:55:24 Past Encounters Encounter ID Performer Location Encounter Start Date Encounter Closed Date Diagnosis/Indication Diagnosis SNOMED-CT Code Diagnosis ICD10 Code Diagnosis IMO Codes Diagnosis Note [id number] Emelia Tellez MD [facility] [address] [place] [address] 01/26/2025 10:19:23 01/26/2025 10:53:09 Cobalamin deficiency 753124616 E53.8 continue supplement ation with SL 1000 mcg qd Gastroesop hageal reflux disease without esophagitis 804177855 K21.9 symptoms controlled on pantoprazo le 40 mg prn Vitiligo 33568490 L80 unchanged Vitamin D deficiency 347 64413 E55.9 continue OTC supplement ation Hyperlipidemia 66672242 E78.5 diet controlled Family his tory of osteoporosis 809885467 Z82.62 DEXA 03/14/20 - nl, recheck 5 yrs Vaccine de clined by patient 3851474137 02 Z28.20 flu and shingrix and covid and pneumonia Body mass index 30+ - obesity 049058671 Z68.36 Postmenopausal state 764 06942 Z78.0 062104 Right flank pain 8019126 09 R10.9 330224 Screening mammography 24 736110 Z12.31 73821497 Edema of foot 436113506 R60.0 745065 R. sounds like venous insufficie ncy. encouraged leg elevation above the heart when at rest. compressio n stockings can help too Health Concerns Section Related Observation LastModified by Organization Detai ls LastModified Time None Recorded Concern Status LastModified by Organization Details LastModified Time None Recorded Payers Encounter Date Sequence Insurance Name Policy Number Policy Wahl Covered Member ID Wahl Member ID Guarantor Name 01/26/2025 1 [employer] [id number] Morelia Aburto [id number] Morelia Aburto Notes Date Note Type Note Provider Name and Address Organization Details Recorded Time 01/26/2025 text/html here for routine f/u seen [...] uncomfortable Emelia Tellez MD [address], [place], [address], [place] - [facility] 01/26/2025 11:15:21 OBGyn Episode No OBEpisode recorded.
== END 2025-03-14 23:59 | disposition home or self-care (01) ==
LOC: RAD 09:54
PROVIDERS: PCP Family Medicine; Visit Provider Family Medicine
DX: Z12.31 Encounter for screening mammogram for malignant neoplasm of breast (principal); R92.323 Mammographic fibroglandular density, bilateral breasts
CPT/HCPCS: 77063; 77067